=== PATIENT | female | born 1940 | race Caucasian/White ===

== ENCOUNTER 2022-01-02 13:28 | Emergency (ER) | payer MEDICARE, BC, SELFPAY ==
--- NOTE | ~2022-01-02 | XR_ITS ---
EXAMINATION: XR KNEE, RIGHT. XR ANKLE, RIGHT. CLINICAL INFORMATION: Fall, pain COMPARISON: None TECHNIQUE: 4 views of the right knee. 3 views of the right ankle. FINDINGS: Right knee: There is an impaction fracture of the lateral tibial plateau with mild surface depression. There is also a longitudinal component in the coronal plane which extends through the posterior cortex of the tibial metaphysis. There is a large lipohemarthrosis. Right ankle: There is an oblique, slightly displaced fracture of the distal fibula at the level of the syndesmosis. The ankle mortise and medial malleolus appear intact. There are moderate to severe degenerative changes of the dorsal midfoot. XR/XR ankle RT min 3V IMPRESSION: Right knee: Lateral tibial plateau fracture with longitudinal component posteriorly and a large lipohemarthrosis of the right knee. Right ankle: Slightly displaced oblique fracture of the right distal fibula at the syndesmosis.
--- NOTE | ~2022-01-02 | CT_ITS ---
EXAMINATION: CT KNEE WITHOUT CONTRAST, RIGHT CLINICAL INFORMATION: Lateral tibial plateau fracture COMPARISON: X-ray of the right knee 01/02/2022 TECHNIQUE: CT scan of the right knee was performed with reconstruction imaging performed at the acquisition workstation. This CT examination was performed using dose optimization techniques as appropriate, variously including the following: *Automated exposure control *Adjustment of mA and/or kV according to patient size (this includes techniques or standardized protocols for targeted exams where dose is matched to indication/reason for exam; i.e. extremities or head) *Use of iterative reconstruction technique DLP: 2:15 mGy-cm FINDINGS: There is a moderately comminuted tibial plateau fracture with the fracture involving essentially the full width of the tibial plateau involving the medial and lateral plateau communicating through the tibial spine region. The lateral plateau the fracture involves the posterior two thirds portion of the articular surface. There is a posterior fragment measuring approximately 16 x 20 mm depressed up to 1 cm. This fragment is also slightly rotated and tilted posteriorly. See sagittal image 91 series 8. The fracture lines extend in the coronal plane through the posterior portion of the tibial spines. There is minimal displacement in the region of the tibial spines. Subsequently this coronal fracture extends through the middle one third portion of the articular surface of the medial plateau. The fracture gap in the medial plateau measures only about 1 mm. There is no joint depression and minimal if any incongruity of the articular surface of the medial plateau. There is a lipohemarthrosis. There is moderate osteoarthritis of the lateral compartment with prominent marginal osteophytes and subchondral sclerosis involving the femoral articular surface. There is mild arthrosis of the medial compartment and no definite arthrosis of the patellofemoral compartment. CT/CT knee RT wo con IMPRESSION: Moderately comminuted tibial plateau fracture with the fracture most severe involving the lateral plateau where the fracture pattern is comminuted and there is joint depression. Osteoarthritis. Lipohemarthrosis.
--- NOTE | ~2022-01-02 | XR_ITS ---
EXAMINATION: XR KNEE, RIGHT. XR ANKLE, RIGHT. CLINICAL INFORMATION: Fall, pain COMPARISON: None TECHNIQUE: 4 views of the right knee. 3 views of the right ankle. FINDINGS: Right knee: There is an impaction fracture of the lateral tibial plateau with mild surface depression. There is also a longitudinal component in the coronal plane which extends through the posterior cortex of the tibial metaphysis. There is a large lipohemarthrosis. Right ankle: There is an oblique, slightly displaced fracture of the distal fibula at the level of the syndesmosis. The ankle mortise and medial malleolus appear intact. There are moderate to severe degenerative changes of the dorsal midfoot. XR/XR knee RT 3V IMPRESSION: Right knee: Lateral tibial plateau fracture with longitudinal component posteriorly and a large lipohemarthrosis of the right knee. Right ankle: Slightly displaced oblique fracture of the right distal fibula at the syndesmosis.
[2022-01-02 15:44] VITALS: BP 174/59; PULSE 84; RESP 17; TEMP 36.3; O2SAT 98; BMI 26.1
--- NOTE | 2022-01-02 17:37 | ED_ITS ---
HPI - Fall General Chief Complaint: Fall Stated Complaint: Fall/Knee & ankle pain Time Seen by Provider: 01/02/22 17:27 Source: patient Mode of arrival: ambulatory Limitations: no limitations History of Present Illness HPI Narrative: Patient comes to the emergency room after sustaining a fall. Patient states that she was walking in her house, patient tripped over a porcelain dog decoration that she had on the floor, landed hard on her right knee. Patient denies hitting her head, no loss of consciousness, patient is not on blood thinners. Patient usually walks unassisted, lives by herself. Patient complain ing of right knee pain and right ankle pain. Patient is unable to bear weight due to pain Related Data Allergies Allergy/AdvReac Type Severity Reaction Status Date / Time No Known Allergies Allergy Unverified 06/08/20 15:20 Review of Systems Review of Systems: Constitutional : No Weight loss, No Fever, No Chills, No Night Sweats, No Fatigue, No Malaise ENT/Mouth : No Hearing loss, No Ear Pain, No Nasal Congestion, No Sinus Pain, No Hoarseness, No sore throat, No Rhinorrhea, No Swallowing Difficulty Eyes: No Eye Pain, No Swelling, No Redness, No Foreign Body, No Discharge, No Vision Changes Cardiovascular : No Chest Pain, No SOB, No Dyspnea on Exertion, No Orthopnea, No Edema, No Palpitations Respiratory : No Cough, No Sputum, No Wheezing, No Smoke Exposure, No Dyspnea Gastrointestinal : No Nausea, No Vomiting, No Diarrhea, No Constipation, No abdominal Pain, No Hematochezia, No Melena Genitourinary : no irregular bleeding, No Dysuria, No Urinary Frequency, No Hematuria, No Urinary Incontinence, No Urgency, No Flank Pain, No Urinary Flow Changes, No Hesitancy Musculoskeletal : Complaining of right knee and right ankle pain Skin : No Skin Lesions, No rash Neuro : No Weakness, No Numbness, No Paresthesias, No Loss of Consciousness, No Dizziness, No Headache Psych : No Anxiety/Panic, No Depression, No SI/HI/AH/VH, No Social Issues, Heme/Lymph: No Bruising, No Bleeding,No Lymphadenopathy Endocrine : No Polyuria, No Polydipsia, No Temperature Intolerance PMFSH Past Medical History Medical History HTN (hypertension) Hypothyroid Social History Social History Advance Directives: No Advance Directives Information Provided: No Physical Exam Vital Signs: Vital Signs: Last Vital Signs Temp 98.1 F 01/02/22 17:40 Pulse 85 01/02/22 17:40 Resp 18 01/02/22 17:40 BP 181/58 H 01/02/22 17:40 Pulse Ox 97 01/02/22 17:40 BMI result Body Mass Index 26.1 Const: Other: Appearance: Alert. Oriented X3. No acute distress. Eyes: Pupils equal, round and reactive to light. ENT: Pharynx normal. Neck: Normal inspection. Neck supple. No lymph nodes noted. No crepitus CVS: Normal heart rate and rhythm. Pulses normal. Normal S1 and S2 Respiratory: No respiratory distress. Breath sounds normal. No Wheezing. No rales Abdomen: Soft and nontender. No rigidity. No distention. Skin: Skin warm and dry. Normal skin color. Normal skin turgor. Extremities: Patient unable to bear weight, pain to palpation in the posterior aspect of the knee, pain to palpation bilaterally on the ankles, no obvious deformity, very mild swelling, no ecchymosis Neuro: Oriented X 3. No motor deficit. No sensory deficit. Moving all extremities. No slurred speech. CN 2 through 12 grossly intact Psych: calm, cooperative, normal affect Course Course Course Narrative: I discussed the x-rays with JENNY Alvares from Orthopedics. Patient will need a CT scan for further orthopedic evaluation in the outpatient setting. Also, patient will need a knee immobilizer and posterior splint. I discussed the plan with the patient and her family. At this time, pain on thing that they will be able to manage the patient at home. We will get a Physical therapy and Case Management consult tomorrow. The daughter who is at bedside, states that It is possible that with more time to plan, the family can help to take the patient home, but it will take some planning, requesting to have the patient stay and be evaluated by Case Management and PT tomorrow. At this time, patient states that she does not have any significant pain, denies any pain medication Physician observation started at 18:00 MDM - Fall Imaging Data Right knee and ankle x-ray: Radiologist's impression: FINDINGS: Right knee: There is an impaction fracture of the lateral tibial plateau with mild surface depression. There is also a longitudinal component in the coronal plane which extends through the posterior cortex of the tibial metaphysis. There is a large lipohemarthrosis. Right ankle: There is an oblique, slightly displaced fracture of the distal fibula at the level of the syndesmosis. The ankle mortise and medial malleolus appear intact. There are moderate to severe degenerative changes of the dorsal midfoot.? XR/XR knee RT 3V IMPRESSION: Right knee: Lateral tibial plateau fracture with longitudinal component posteriorly and a large lipohemarthrosis of the right knee. ? Right ankle: Slightly displaced oblique fracture of the right distal fibula at the syndesmosis.? Right knee CT scan: Radiologist's impression: FINDINGS: There is a moderately comminuted tibial plateau fracture with the fracture involving essentially the full width of the tibial plateau involving the medial and lateral plateau communicating through? the tibial spine region. The lateral plateau the fracture involves the posterior two thirds portion of the articular surface. There is a posterior fragment measuring approximately 16 x 20 mm depressed up to 1 cm. This fragment is also slightly rotated and tilted posteriorly. See sagittal image 91 series 8. The fracture lines extend in the coronal plane through the posterior portion of the tibial spines. There is minimal displacement in the region of the tibial spines. Subsequently this coronal fracture extends through the middle one third portion of the articular surface of the medial plateau. The fracture gap in the medial plateau measures only about 1 mm. There is no joint depression and minimal if any incongruity of the articular surface of the medial plateau. There is a lipohemarthrosis. There is moderate osteoarthritis of the lateral compartment with prominent marginal osteophytes and subchondral sclerosis involving the femoral articular surface. There is mild arthrosis of the medial compartment and no definite arthrosis of the patellofemoral compartment. CT/CT knee RT wo con IMPRESSION: Moderately comminuted tibial plateau fracture with the fracture most severe involving the lateral plateau where the fracture pattern is comminuted and there is joint depression. ? Osteoarthritis. ? Lipohemarthrosis. Discharge Plan Discharge Clinical Impression: Fracture of left tibial plateau, Oblique fracture of shaft of fibula Patient Disposition: Still a Patient
[2022-01-02 17:40] VITALS: BP 181/58; PULSE 85; RESP 18; TEMP 36.7; O2SAT 97
[2022-01-02 20:07] VITALS: BP 149/70; PULSE 83; RESP 16; O2SAT 96
--- NOTE | 2022-01-02 22:20 | PC.NURSE ---
Pt out of school hours care worker Lisa put a posterior short splint and knee immobilizer on pt's right leg. PCT was able to apply the splint and immobilizer.
[2022-01-02 22:47] VITALS: BP 139/55; PULSE 81; RESP 16; TEMP 37.1; O2SAT 96
[2022-01-02] MEDS: Acetaminophen 325 MG TABLET 650 MG PO (23:19)
[2022-01-03] VITALS (7 sets, daily range): BP systolic 126–146; BP diastolic 44–61; PULSE 70–83; RESP 14–22; TEMP 36.7; O2SAT 93–96
--- NOTE | 2022-01-03 03:36 | PC.NURSE ---
Pt placed on bedpan.
[2022-01-03] MEDS: Ketorolac Tromethamine 15 MG/ML VIAL IM (04:14)
--- NOTE | 2022-01-03 05:43 | PC.NURSE ---
Pt now sleeping well after Toradol injection. No needs at this time. Will continue to monitor.
[2022-01-03] MEDS: Acetaminophen 325 MG TABLET 975 MG PO (09:43)
--- NOTE | 2022-01-03 09:52 | PHA.MEDREC ---
Pharmacy Consult ? Medication Reconciliation Pharmacy has completed the medication reconciliation. No remarkable issues. Erin Castillo, PhilippD
[2022-01-03] MEDS: Levothyroxine Sodium 100 MCG TABLET PO (10:48)
[2022-01-03] MEDS: Cholecalciferol (Vitamin D3) 25 MCG TABLET 50 MCG PO (10:48)
[2022-01-03] MEDS: Multivitamin TABLET 1 TAB PO (10:48)
--- NOTE | 2022-01-03 11:00 | MHC.CM.ED ---
Addendum entered by Kerri Zepeda 01/03/22 13:22: Pt accepted to [facility] [place] today at 3pm via [facility]. Pt and family in agreement with transfer - ED care team aware of plan Original Note: Received consult for assessment of d/c needs: Pt presented to ED after a fall at home: found to have a tibial plateau fx that ortho felt could managed as an outpt. Prior to injury, pt was independent with no assistive devices or services. Family available to assist however, pt does not feel she could manage at home yet d/t pain and mobility impairment. PT eval recommends STR: Pt would like choices close to the [place] / [place] area. Pt is NOT Covid vaccinated. Referrals made: waiting for accepting facility.
[2022-01-03] MEDS: hydroCHLOROthiazide 25 MG TABLET PO (11:05)
[2022-01-03 13:52] LABS: COVID-19 Test Negative (Negative)
== END 2022-01-03 15:18 | disposition still patient (30) ==
PROVIDERS: Nurse Practitioner Family; Emergency Provider Emergency Medicine; PCP Family Medicine
DX: S82.142A Displaced bicondylar fracture of left tibia, initial encounter for closed fracture (principal); S82.432A Displaced oblique fracture of shaft of left fibula, initial encounter for closed fracture; W18.00XA Striking against unspecified object with subsequent fall, initial encounter; Y93.9 Activity, unspecified; Y92.009 Unspecified place in unspecified non-institutional (private) residence as the place of occurrence of the external cause; Y99.9 Unspecified external cause status; Z20.822 Contact with and (suspected) exposure to COVID-19; Z79.899 Other long term (current) drug therapy
CPT/HCPCS: 29505; 36415; 73562; 73610; 73700; 85610; 87635; 96372; 97162; 99285; J1885

== ENCOUNTER → 2022-01-10 11:06 | Outpatient (BNVA) | payer MEDICARE, BC, SELFPAY | PROVIDERS: PCP Family Medicine; Visit Provider Physician Assistant | DX: S82.121A Displaced fracture of lateral condyle of right tibia, initial encounter for closed fracture (principal); S82.831A Other fracture of upper and lower end of right fibula, initial encounter for closed fracture | CPT/HCPCS: 99202 ==

== ENCOUNTER 2022-02-07 08:06 | Outpatient (REF) | payer MEDICARE, BC, SELFPAY ==
--- NOTE | ~2022-02-07 | XR_ITS ---
EXAMINATION: XR knee RT 3V, XR ankle RT min 3V CLINICAL INFORMATION: Pain in unspecified knee COMPARISON: CT of the right knee 01/07/2022. Right ankle radiographs 01/02/2022 as well TECHNIQUE: AP, lateral, and sunrise views the right knee. AP, lateral, and oblique views of the right ankle. FINDINGS: Again seen is an oblique fracture of the right distal fibula at the syndesmosis. The fracture line is less distinct but there is a similar degree of displacement. Associated soft tissue swelling is slightly improved. No widening of the ankle mortise. Severe sclerosis and osteophytosis of the dorsal midfoot. Similar appearance of impaction fracture of the lateral tibial plateau with a longitudinal component as well. There is increased sclerosis consistent with some interval fracture healing. No significant change in the degree of impaction from the prior study previously seen lipohemarthrosis is improved with a small residual joint effusion. XR/XR knee RT 3V IMPRESSION: Similar appearance of impaction fracture of the lateral tibial plateau with a longitudinal component. There is some increased sclerosis consistent with interval fracture healing. Associated right knee lipohemarthrosis is improved with a small residual joint effusion. Oblique fracture of the right distal fibula are again seen. The fracture line remains visible but is less distinct consistent with early fracture healing.
--- NOTE | ~2022-02-07 | XR_ITS ---
EXAMINATION: XR knee RT 3V, XR ankle RT min 3V CLINICAL INFORMATION: Pain in unspecified knee COMPARISON: CT of the right knee 01/07/2022. Right ankle radiographs 01/02/2022 as well TECHNIQUE: AP, lateral, and sunrise views the right knee. AP, lateral, and oblique views of the right ankle. FINDINGS: Again seen is an oblique fracture of the right distal fibula at the syndesmosis. The fracture line is less distinct but there is a similar degree of displacement. Associated soft tissue swelling is slightly improved. No widening of the ankle mortise. Severe sclerosis and osteophytosis of the dorsal midfoot. Similar appearance of impaction fracture of the lateral tibial plateau with a longitudinal component as well. There is increased sclerosis consistent with some interval fracture healing. No significant change in the degree of impaction from the prior study previously seen lipohemarthrosis is improved with a small residual joint effusion. XR/XR ankle RT min 3V IMPRESSION: Similar appearance of impaction fracture of the lateral tibial plateau with a longitudinal component. There is some increased sclerosis consistent with interval fracture healing. Associated right knee lipohemarthrosis is improved with a small residual joint effusion. Oblique fracture of the right distal fibula are again seen. The fracture line remains visible but is less distinct consistent with early fracture healing.
== END 2022-02-07 08:07 | disposition home or self-care (01) ==
LOC: HO.HOSX 08:06
PROVIDERS: Visit Provider Physician Assistant
DX: S82.121D Displaced fracture of lateral condyle of right tibia, subsequent encounter for closed fracture with routine healing (principal); S82.831D Other fracture of upper and lower end of right fibula, subsequent encounter for closed fracture with routine healing
CPT/HCPCS: 73562; 73610; 99212

== ENCOUNTER 2022-03-04 07:23 | Outpatient (REF) | payer MEDICARE, BC, SELFPAY ==
--- NOTE | ~2022-03-04 | XR_ITS ---
EXAMINATION: XR RIGHT ANKLE XR RIGHT KNEE CLINICAL INFORMATION: Pain. COMPARISON: Right ankle 02/07/2022. TECHNIQUE: 3 views right ankle and 2 views right knee. FINDINGS: RIGHT ANKLE: There is an oblique fracture through the distal fibula with mild soft tissue swelling. Very little callus formation is seen. The ankle mortise and subtalar joints are normal. There is loss of talonavicular joint with dorsal intertarsal spurring and mild subchondral cystic changes along the navicular bone. RIGHT KNEE: Again visualized is a lateral tibial depressed plateau fracture with vertical fracture line seen on the lateral view. Mild sclerosis seen suggestive of healing along the fracture line. There is mild suprapatellar joint effusion. XR/XR knee RT 2V IMPRESSION: Depressed lateral plateau fracture with some sclerosis suggestive of healing. There is [id number] suprapatellar joint effusion. There is mild soft tissue swelling. Transverse slowly healing fracture distal fibula with mild soft tissue swelling. Degenerative arthritic changes talonavicular joint.
--- NOTE | ~2022-03-04 | XR_ITS ---
EXAMINATION: XR RIGHT ANKLE XR RIGHT KNEE CLINICAL INFORMATION: Pain. COMPARISON: Right ankle 02/07/2022. TECHNIQUE: 3 views right ankle and 2 views right knee. FINDINGS: RIGHT ANKLE: There is an oblique fracture through the distal fibula with mild soft tissue swelling. Very little callus formation is seen. The ankle mortise and subtalar joints are normal. There is loss of talonavicular joint with dorsal intertarsal spurring and mild subchondral cystic changes along the navicular bone. RIGHT KNEE: Again visualized is a lateral tibial depressed plateau fracture with vertical fracture line seen on the lateral view. Mild sclerosis seen suggestive of healing along the fracture line. There is mild suprapatellar joint effusion. XR/XR ankle RT min 3V IMPRESSION: Depressed lateral plateau fracture with some sclerosis suggestive of healing. There is [id number] suprapatellar joint effusion. There is mild soft tissue swelling. Transverse slowly healing fracture distal fibula with mild soft tissue swelling. Degenerative arthritic changes talonavicular joint.
== END 2022-03-04 07:24 | disposition home or self-care (01) ==
LOC: HO.HOSX 07:23
PROVIDERS: Visit Provider Physician Assistant
DX: S82.831D Other fracture of upper and lower end of right fibula, subsequent encounter for closed fracture with routine healing (principal); S82.121D Displaced fracture of lateral condyle of right tibia, subsequent encounter for closed fracture with routine healing
CPT/HCPCS: 73560; 73610; 99212

== ENCOUNTER 2022-04-22 07:43 | Outpatient (REF) | payer MEDICARE, BC, SELFPAY ==
--- NOTE | ~2022-04-22 | XR_ITS ---
EXAMINATION: XR ANKLE, RIGHT CLINICAL INFORMATION: Fracture COMPARISON: Previous x-ray most recent January 2019 TECHNIQUE: AP, lateral, and mortise views of the right ankle. FINDINGS: There is a fracture of the right distal fibula. Fracture line appears slightly more indistinct suggestive of a some evidence of healing. There is periosteal reaction along the distal tibia questionable for changes related to trauma. The ankle mortise is normal. There is severe arthritis at the talonavicular and naviculocuneiform joints. There is still soft tissue swelling about the ankle. XR/XR ankle RT min 3V IMPRESSION: Healing right distal fibular fracture. Increasing periosteal reaction along the medial distal tibia questionable for changes related to trauma. Severe arthritis of the foot.
--- NOTE | ~2022-04-22 | XR_ITS ---
EXAMINATION: XR KNEE, RIGHT CLINICAL INFORMATION: Fracture COMPARISON: Previous x-rays most recent January 2022 TECHNIQUE: Three views of the right knee. FINDINGS: The bones are osteopenic. There is a healing lateral tibial plateau fracture. No other fracture. There is mild arthritis at the femoral joints with small osteophytes. There is a joint effusion. There is evidence of atherosclerotic disease. XR/XR knee RT 3V IMPRESSION: Osteopenia. Healing lateral tibial plateau fracture.
== END 2022-04-22 07:44 | disposition home or self-care (01) ==
LOC: HO.HOSX 07:43
PROVIDERS: Visit Provider Physician Assistant
DX: S82.121A Displaced fracture of lateral condyle of right tibia, initial encounter for closed fracture (principal); S82.831A Other fracture of upper and lower end of right fibula, initial encounter for closed fracture
CPT/HCPCS: 73562; 73610; 99212

== ENCOUNTER 2024-03-29 09:44 | Day surgery (SDC) | payer MEDICARE, BC, SELFPAY ==
[2024-03-17 11:33] VITALS: BMI 25.2
[2024-03-29] MEDS: Tetracaine HCl/PF 0.5% Oph Sol 4 ML DROPS 1 DROP EYE-RIGHT (11:05)
[2024-03-29] MEDS: Cyclopentolate 1 % Ophth Sol 2 ML DRPBTL 1 DROP EYE-RIGHT ×3 (11:06→11:22)
[2024-03-29] MEDS: Tropicamide 1 % Ophth Sol 3 ML BTL 1 DROP EYE-RIGHT ×3 (11:08→11:24)
[2024-03-29] MEDS: Ketorolac Tromethamine 0.5% Op 10 ML DROPS 1 DROP EYE-RIGHT ×3 (11:10→11:26)
--- NOTE | 2024-03-29 11:11 | P.CONAN_ITS ---
HPI - Anesthesia Eval Consult details Narrative: 83 yo female patient for Right cataract extraction, IOL insertion PMFSH Active Problems Active Problems: All Active Problems Closed fracture of right distal fibula (Acute) Closed fracture of lateral portion of right tibial plateau (Acute) Past Medical History Medical History AAA (abdominal aortic aneurysm) Stress incontinence Lung nodule History of palpitations Chronic renal disease Wears hearing aid in both ears Cataracts, bilateral Mild heartburn Osteoporosis Former smoker COPD (chronic obstructive pulmonary disease) SOB (shortness of breath) HTN (hypertension) Hypothyroid Family History Family history of problems with anesthesia: No Surgical History Surgical History (Updated 03/29/24 @ 11:17 by Emily Kaminski MD) Hx of cystoscopy History of tonsillectomy and adenoidectomy (~1943) History of Problems with Anesthesia: No Social History Social History Household Members: None Housing: House Are you a primary manager critical care unit to a significant other at home: No Do you presently have visiting nurse or other home services: No Alcohol intake: never Patient Tobacco Use Status: Former Tobacco user Tobacco use type: Cigarette Smoked in Last 30 Days: No Use of substances other than those prescribed or required for medical reasons: No Have you been hit, kicked, punched, or otherwise hurt by someone within the past year? If so, by whom?: No Are you DNR?: No Advance Directives: No Advance Directives Information Provided: Yes Advance Directives on File: No Recently lost weight without trying: No Meds Allergies Allergy/AdvReac Type Severity Reaction Status Date / Time No Known Allergies Allergy Verified 03/16/24 16:16 Active Medications: Current Medications Povidone Iodine (Povidone Iodine 5 % Ophth Soln 30 Ml Bottle) 1 appl EYE-RIGHT PREOP PRN PRN Reason: Pre-Op Surgical Implant Prophy Home Medications ?Medication ?Instructions ?Recorded ?Confirmed ?Last Taken ?Type alendronate 70 mg tablet 1 tab PO MO 01/03/22 03/17/24 12/31/21 History calcium carbonate (Calcium 600) 600 mg PO DAILY 01/03/22 03/17/24 01/02/22 History chlorthalidone 25 mg tablet 1 tab PO DAILY 01/03/22 03/17/24 01/02/22 History cholecalciferol (vitamin D3) 50 50 mcg PO DAILY 01/03/22 03/17/24 01/02/22 History mcg (2,000 unit) tablet levothyroxine 100 mcg tablet 1 tab PO DAILY 01/03/22 03/17/24 01/02/22 History multivitamin 1 tab PO DAILY 01/03/22 03/17/24 01/02/22 History oxybutynin chloride 10 mg 1 tab PO DAILY 01/03/22 03/17/24 01/02/22 History tablet,extended release 24 hr potassium chloride 10 mEq 1 tab PO DAILY 01/03/22 03/17/24 01/02/22 History tablet,extended release Tums PO PRN Acid Reflux 03/16/24 03/16/24 Unknown History Exam Height,Weight and Vital Signs: Height 5 ft 6 in Weight 70.76 kg Vital Signs Temp Pulse Resp BP Pulse Ox O2 Del Method 03/29/24 11:37 97.4 F 72 16 172/68 H 98 Room Air Airway Mallampati Class: II TM Dist: >3cm Neck ROM: Full Denture: Upper Partial: Lower Loose/Missing/Broken Teeth: Yes (Denies broken or loose teeth) Heart: RRR Lungs: CTAB Assessment and Plan Assessment Anesthesia Assessment: Anesthesia Plan Discussed and Chart Reviewed Final Anesthetic Review Family History of Problems with Anesthesia: No History of Problems with Anesthesia: No NPO: Yes ASA Class: III Final Preanesthetic Review: No Changes in Pt Med Stat, Meds/Allgs Chart Reviewed, Consent Obtained/Reviewed and Anes Risks/Benef Reviewed Patient Risk: Intermediate Procedure Risk: Low Assessment/Block/Sedation in SS: Assess/Block/Sedation-SS Anesthetic Plan Anesthetic Plan: MAC: Disposition: Standard PACU
[2024-03-29] MEDS: Phenylephrine HCL 2.5% Oph SoL 2 ML BOTTLE 1 DROP EYE-RIGHT ×3 (11:12→11:28)
[2024-03-29] MEDS: Lactated Ringers 500 ML 50 ML IV (11:27)
[2024-03-29 11:37] VITALS: BP 172/68; PULSE 72; RESP 16; TEMP 36.3; O2SAT 98
--- NOTE | 2024-03-29 12:24 | P.PCNO_ITS ---
Ophthalmology Procedure Procedure Date of Service: 03/29/24 Ophthalmology Viscoelastic: Healon Duet Dual Pack Pro Ophthalmology Lenses: IOL Acrysof MP - MA60AC (21) Procedure Notes: PREOPERATIVE DIAGNOSIS: Decreased visual acuity right eye secondary to cataract POSTOPERATIVE DIAGNOSIS: Same PROCEDURE: Right cataract extraction with intraocular lens insertion SURGEON: Shawn Moore M.D. ANESTHESIA: Topical/MAC ESTIMATED BLOOD LOSS: None COMPLICATIONS: None After obtaining informed consent, the patient was brought to the operating room suite and placed in the supine position. After adequate sedation per anesthesia, topical drops of Tetracaine were given to the right eye. The eye was then prepped and draped in the usual sterile fashion. The operating room microscope was then positioned over the operative eye and a lid speculum placed. A paracentesis was created. Viscoelastic was then instilled into the anterior chamber. A three plane incision was then created temporally, utilizing a 2.85 mm keratome. Capsulotomy forceps were then utilized to create a circular tear capsulotomy. Hydrodissection and hydrodelineation were carried out until adequate mobilization of the nucleus occurred. Phacoemulsification was then utilized to remove the dense central nucl eus followed by removal of the cortical material utilizing the automated aspiration irrigation unit. Viscoelastic was instilled into the posterior capsular bag followed by placement of a posterior chamber intraocular lens without difficulty. The residual Viscoelastic was then removed utilizing the automated IA machine. The wound was checked and found to be watertight. The patient tolerated the procedure well and the lid speculum was removed. Intracameral injection of Vigamox 0.1 mL followed by a subtenon injection of Kenalog-40 0.2 mL were administered. The patient will be seen in the a.m.
--- NOTE | 2024-03-29 12:24 | MHC.SHP ---
Pre-Procedural Eval Section A - 24 Hr Update-Section A only Date of Service: 03/29/24 The patient is an INPATIENT: No Changes since office visit: No Cold of Flu in the past 2 weeks, No New Medical Problems, No Changes in Medication and No Patient answered all questions The patient has been examined within 24 hours of the surgical procedure. The History & Physical has been completed within 30 days and I have reviewed it.: Yes Section B - Complete if H&P > 30 days Chief Complaint: Age-related nuclear cataract, right eye Allergies: Allergies Allergy/AdvReac Type Severity Reaction Status Date / Time No Known Allergies Allergy Verified 03/16/24 16:16 Plan Diagnosis/Plan: Unchanged I have reviewed the history and physical and performed a pertinent physical examination on my patient. No changes have occurred unless specified. Time Spent With Patient Time: Total time managing care of this patient today ____ minutes.
[2024-03-29 12:51] VITALS: BP 151/58; PULSE 76; RESP 14; TEMP 36.2; O2SAT 94
== END 2024-03-29 13:05 | disposition home or self-care (01) ==
PROVIDERS: PCP Physician Assistant; Visit Provider Ophthalmology
PROC: (CPT 66985; principal; 2024-03-29 12:10)
DX: H25.11 Age-related nuclear cataract, right eye (principal); H54.7 Unspecified visual loss; D31.91 Benign neoplasm of unspecified part of right eye; H18.413 Arcus senilis, bilateral; H43.393 Other vitreous opacities, bilateral; I10 Essential (primary) hypertension; E03.9 Hypothyroidism, unspecified; Z79.899 Other long term (current) drug therapy; Z87.891 Personal history of nicotine dependence
CPT/HCPCS: 66984; J2250; J3301; V2630

== ENCOUNTER 2024-04-12 08:37 | Day surgery (SDC) | payer MEDICARE, BC, SELFPAY ==
[2024-03-17 11:43] VITALS: BMI 25.2
[2024-04-12 09:50] VITALS: BP 145/79; PULSE 71; RESP 18; TEMP 36.6; O2SAT 95
[2024-04-12] MEDS: Tetracaine HCl/PF 0.5% Oph Sol 4 ML DROPS 1 DROP EYE-LEFT (09:58)
[2024-04-12] MEDS: Cyclopentolate 1 % Ophth Sol 2 ML DRPBTL 1 DROP EYE-LEFT ×3 (09:58→10:09)
[2024-04-12] MEDS: Phenylephrine HCL 2.5% Oph SoL 2 ML BOTTLE 1 DROP EYE-LEFT ×3 (09:58→10:09)
[2024-04-12] MEDS: Tropicamide 1 % Ophth Sol 3 ML BTL 1 DROP EYE-LEFT ×3 (09:59→10:09)
[2024-04-12] MEDS: Ketorolac Tromethamine 0.5% Op 10 ML DROPS 1 DROP EYE-LEFT ×3 (09:59→10:09)
[2024-04-12] MEDS: Lactated Ringers 500 ML 50 ML IV (10:00)
--- NOTE | 2024-04-12 10:37 | HO.ANESPROP2 ---
HPI - Anesthesia Eval Consult details Narrative: 83 yo F presenting for left cataract extraction IOL insertion. Had right eye done previously. PMF Active Problems Active Problems: All Active Problems Closed fracture of right distal fibula (Acute) Closed fracture of lateral portion of right tibial plateau (Acute) Past Medical History Medical History AAA (abdominal aortic aneurysm) Stress incontinence Lung nodule History of palpitations Chronic renal disease Wears hearing aid in both ears Cataracts, bilateral Mild heartburn Osteoporosis Former smoker COPD (chronic obstructive pulmonary disease) SOB (shortness of breath) HTN (hypertension) Hypothyroid Family History Family history of problems with anesthesia: No Surgical History Surgical History Hx of cystoscopy History of tonsillectomy and adenoidectomy (~1943) History of Problems with Anesthesia: No Social History Social History Household Members: None Housing: House Are you a primary critical care physician assistant to a significant other at home: No Do you presently have visiting nurse or other home services: No Alcohol intake: never Patient Tobacco Use Status: Former Tobacco user Tobacco use type: Cigarette Smoked in Last 30 Days: No Use of substances other than those prescribed or required for medical reasons: No Have you been hit, kicked, punched, or otherwise hurt by someone within the past year? If so, by whom?: No Are you DNR?: No Advance Directives: No Advance Directives Information Provided: Yes Advance Directives on File: No Healthcare Proxy: No Recently lost weight without trying: No Meds Allergies Allergy/AdvReac Type Severity Reaction Status Date / Time No Known Allergies Allergy Verified 04/12/24 10:12 Active Medications: Current Medications Lactated Ringer's (Lr) 500 mls @ 50 mls/hr IV .Q10H SARWAT Stop: 04/12/24 19:59 Last Admin: 04/12/24 10:00 Dose: 50 mls/hr Povidone Iodine (Povidone Iodine 5 % Ophth Soln 30 Ml Bottle) 1 appl EYE-LEFT PREOP PRN PRN Reason: Pre-Op Surgical Implant Prophy Home Medications ?Medication ?Instructions ?Recorded ?Confirmed ?Last Taken ?Type alendronate 70 mg tablet 1 tab PO MO 01/03/22 03/29/24 03/28/24 History calcium carbonate (Calcium 600) 600 mg PO DAILY 01/03/22 03/29/24 03/28/24 History chlorthalidone 25 mg tablet 1 tab PO DAILY 01/03/22 03/29/24 03/28/24 History cholecalciferol (vitamin D3) 50 50 mcg PO DAILY 01/03/22 03/29/24 03/28/24 History mcg (2,000 unit) tablet levothyroxine 100 mcg tablet 1 tab PO DAILY 01/03/22 03/29/24 04/12/24 History multivitamin 1 tab PO DAILY 01/03/22 03/29/24 03/28/24 History oxybutynin chloride 10 mg 1 tab PO DAILY 01/03/22 03/29/24 04/12/24 History tablet,extended release 24 hr potassium chloride 10 mEq 1 tab PO DAILY 01/03/22 03/29/24 03/28/24 History tablet,extended release Tums PO PRN Acid Reflux 03/16/24 03/16/24 Unknown History Exam Exam Date and Time: April 12, 2024 103 Height,Weight and Vital Signs: Height 5 ft 6 in Weight 70.76 kg Last Vital Signs Temp 97.9 F 04/12/24 09:50 Pulse 71 04/12/24 09:50 Resp 18 04/12/24 09:50 BP 145/79 H 04/12/24 09:50 Pulse Ox 95 04/12/24 09:50 O2 Del Method Room Air 04/12/24 09:50 Airway Mallampati Class: II TM Dist: >3cm Neck ROM: Full Denture: Upper Loose/Missing/Broken Teeth: No (patient denies any loose or broken teeth on bottom jaw) Heart: S1S2 Lungs: CTAB Assessment and Plan Assessment Anesthesia Assessment: Anesthesia Plan Discussed and Chart Reviewed Final Anesthetic Review Family History of Problems with Anesthesia: No History of Problems with Anesthesia: No NPO: Yes ASA Class: III Final Preanesthetic Review: No Changes in Pt Med Stat, Meds/Allgs Chart Reviewed, Consent Obtained/Reviewed and Anes Risks/Benef Reviewed Patient Risk: Intermediate Procedure Risk: Low Anesthetic Plan Anesthetic Plan: MAC: and Agree w/ Assess. and Plan Disposition: Standard PACU
--- NOTE | 2024-04-12 11:01 | MHC.SHP ---
Pre-Procedural Eval Section A - 24 Hr Update-Section A only Date of Service: 04/12/24 The patient is an INPATIENT: No Changes since office visit: No Cold of Flu in the past 2 weeks, No New Medical Problems, No Changes in Medication and No Patient answered all questions The patient has been examined within 24 hours of the surgical procedure. The History & Physical has been completed within 30 days and I have reviewed it.: Yes Section B - Complete if H&P > 30 days Chief Complaint: Age-related nuclear cataract, left eye Allergies: Allergies Allergy/AdvReac Type Severity Reaction Status Date / Time No Known Allergies Allergy Verified 04/12/24 10:12 Plan Diagnosis/Plan: Unchanged I have reviewed the history and physical and performed a pertinent physical examination on my patient. No changes have occurred unless specified. Time Spent With Patient Time: Total time managing care of this patient today ____ minutes.
--- NOTE | 2024-04-12 11:01 | HO.PNOPHT ---
Ophthalmology Procedure Procedure Date of Service: 04/12/24 Ophthalmology Viscoelastic: Healon Duet Dual Pack Pro Ophthalmology Lenses: IOL Acrysof MP - MA60AC (21) Procedure Notes: PREOPERATIVE DIAGNOSIS: Decreased visual acuity left eye secondary to cataract POSTOPERATIVE DIAGNOSIS: Same PROCEDURE: Left cataract extraction with intraocular lens insertion SURGEON: Shawn Moore M.D. ANESTHESIA: Topical/MAC ESTIMATED BLOOD LOSS: None COMPLICATIONS: None After obtaining informed consent, the patient was brought to the operation room suite and placed in the supine position. After adequate sedation per anesthesia, topical drops of Tetracaine were given to the left eye. The eye was then prepped and draped in the usual sterile fashion. The operating room microscope was then positioned over the operative eye and a lid speculum placed. A paracentesis was created. Viscoelastic was then instilled into the anterior chamber. A three plane incision was then created temporally, utilizing a 2.85 mm keratome. Capsulotomy forceps were then utilized to create a circular tear capsulotomy. Hydrodissection and hydrodelineation were carried out until adequate mobilization of the nucleus occurred. Phacoemulsification was then utilized to remove the dense central nucleus followed by removal of the cortical material utilizing the automated aspiration irrigation unit. Viscoat elastic was instilled into the posterior capsular bag followed by placement of a posterior chamber intraocular lens without difficulty. The residual Viscoat elastic was then removed utilizing the automated IA machine. The wound was check and found to be watertight. The patient tolerated the procedure well and the lid speculum was removed. Intracameral injection of Vigamox 0.1 mL followed by a subtenon injection of Kenalog-40 0.2 mL were administered. The patient will be seen in the a.m.
[2024-04-12 11:30] VITALS: BP 108/87; PULSE 68; RESP 16; TEMP 36.7; O2SAT 95
== END 2024-04-12 11:45 | disposition home or self-care (01) ==
PROVIDERS: PCP Physician Assistant; Visit Provider Ophthalmology
PROC: (CPT 66985; principal; 2024-04-12 10:50)
DX: H25.12 Age-related nuclear cataract, left eye (principal); H54.7 Unspecified visual loss; H18.413 Arcus senilis, bilateral; H43.393 Other vitreous opacities, bilateral; I10 Essential (primary) hypertension; E03.9 Hypothyroidism, unspecified; Z79.899 Other long term (current) drug therapy; Z87.891 Personal history of nicotine dependence
CPT/HCPCS: 66984; J2250; J3301; V2630